=== PATIENT | female | born 1990 | race Caucasian/White ===

== ENCOUNTER 2025-02-16 11:43 | Outpatient (AMB) | payer OTHER, SELFPAY ==
--- NOTE | 2025-02-16 11:51 | MHC.PC.OV ---
Vital Signs 02/16/25 12:02 Height 6 ft Weight 245 lb 6 oz BMI 33.3 BP 128/82 Blood Pressure Location Lt brachial Position Sitting Respiration 13 Pulse 76 Pulse Source Pulse Oximeter Temp 98.4 F Temp Source Temporal Artery Scan Pulse Oximetry (%) 95 Oxygen Delivery Method Room Air Intake Visit Reasons: [facility] Intake Note: Edyta presents in the office today to establish care. Allergies No Known Allergies Allergy (Verified 02/16/25 11:55) Tobacco use date assessed: 02/16/25 Dental Screening Dental Screen Date: 02/16/25 Did you have a dental visit in the last 12 months?: Yes Did you have a dental problem in the last 6 months where you did not have access to dental care?: No Was dental information given to patient?: Patient has dentist HPI HPI Comments History of Present Illness Details 34-year-old female with a past medical history of anxiety with depression, BRCA1 mutation, skin cancer and asthma presents to establish care. She transferred from [facility]. Due for a physical exam. Endorses itching and dry skin and ears for 2 months. Went to the walk-in and they said she had no infection. She has seasonal allergies. Gets dry skin but no eczema or rashes elsewhere. Tried changing shampoos without success. Takes albuterol as needed before exercise and seasonally. No hospitalizations or ER visits for asthma. Patient sees telehealth psychiatrist from [place]. They thought about starting Prozac, but she deferred. She is trying vitamins and working on wellness. She is sleeping better. She is thinking about seeing a therapist. BRCA1 mutation-previously followed by [facility], but the specialist told her she had to decide within a year if she wanted to have mastectomy and hysterectomy, and they said she would be dropped from the practice if she did not make the decision so she did not want to go back. Patient says her sister had prophylactic mastectomy and hysterectomy and has had a lot of issues since then. She was previously seen at [facility] [place] and requests referral there. She also needs a referral to Gynecology locally. Denies breast pain, lumps, rashes or nipple discharge. Patient seen at [facility] and had skin cancer removed from her back. She does not remember what kind, but she goes regularly for skin exams at least once per year. Patient has been working on weight loss, but it is difficult to lose weight. No recent TSH level. No history of thyroid disease. She is not interested in weight loss medications. Declines flu shot. Tdap administered. ROS: Constitutional: No unexplained weight loss, fever, chills, fatigue or night sweats. Eyes: No vision changes, blurry vision, double vision, eye pain, eye redness, eye discharge. ENT: No hearing loss, sneezing, congestion, runny nose or sore throat. Respiratory: No shortness of breath, cough or sputum production. Cardiovascular: No chest pain, chest pressure or chest discomfort. No palpitations or pedal edema. Gastrointestinal: No anorexia, nausea, vomiting or diarrhea. No abdominal pain or blood in stool. Genitourinary: No dysuria, hematuria, urinary frequency. Neurologic: No headache, dizziness, syncope, unilateral weakness, ataxia, numbness or tingling in the extremities. Musculoskeletal: No muscle pain, back pain, joint pain or swelling. Hematologic/Lymphatics: No bleeding or bruising. No painful lymph nodes. Skin: See HPI Endocrine: No cold or heat intolerance. No polyuria or polydipsia. Psychiatric: See HPI. No SI or HI. Physical exam: Constitutional: Alert, in no distress. Head: Normocephalic. Eyes: Pupils are equal, round and reactive to light. Extraocular muscles intact. Ear, Nose and Throat: Canals without erythema, discharge or swelling. There is dryness and some flaky skin in the ear canals.. TMs normal. Normal nasal mucosa. No nasal discharge. No oral lesions. Neck: Supple, Full range of motion. No lymphadenopathy. No palpable thyroid masses. Respiratory: Clear to auscultation. Cardiovascular: S1 S2 regular. No murmur Gastrointestinal: Abdomen soft, non-tender, non-distended. Normal bowel sounds. No palpable masses. Genitourinary: No costovertebral angle tenderness. Neurologic: No focal neurological deficits. Symmetric patellar reflexes. Moves all extremities spontaneously. Sensation intact bilaterally. Skin: No rashes Musculoskeletal: No gross deformities. Normal range of motion. Extremities: Warm and well perfused. No clubbing, cyanosis or edema. Intact peripheral pulses bilaterally Psychiatric: Normal mood and affect [facility] Medical History (Updated 02/17/25 @ 09:08 by CHAUNCEY Huerta) Dermatitis of both ear canals Routine physical examination Screening for cardiovascular condition Skin cancer Breast cancer, BRCA1 positive Anxiety and depression Seasonal allergies Family History (Updated 02/16/25 @ 12:01 by Liudmila Phillips CMA) Father Hypertension Cardiovascular disease Mother Tumor Anxiety and depression Panic disorder FH: mental illness Maternal Grandmother Breast cancer Ovarian cancer Thyroid cancer Social History (Updated 02/16/25 @ 12:02 by Liudmila Phillips CMA) Housing: Apartment Alcohol intake: current Patient Tobacco Use Status: Former Tobacco user Cigarette Packs Per Day: 1 Cigarettes Per Day: 10 Years Smoked: 10 e-Cigarette/Vaping Use: Former Use Second Hand Smoke Exposure: Yes Substance Use Type: Marijuana service: No Current occupational status: employed 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 1. Little interest or pleasure in doing things: several days 2. Feeling down, depressed, or hopeless: several days 3. Trouble falling or staying asleep, or sleeping too much: several days 4. Feeling tired or having little energy: several days 5. Poor appetite or overeating: several days 6. Feeling bad about yourself - or that you are a failure or have let yourself or your family down: several days 7. Trouble concentrating on things, such as reading the newspaper or watching television: more than half the days 8. Moving or speaking so slowly that other people could have noticed. Or the opposite - being so fidgety or restless that you have been moving around a lot more than usual: several days 9. Thoughts that you would be better off or of hurting yourself in some way: not at all Total score: 9 Depression Screening Interpretation: Positive Depression Screening Follow-up: Existing condition and In treatment Depression Screening Done: Yes 25172 - PHQ-9 Billing: Yes Source: Developed by Drs. Justice Waller, Elisa Mcfadden, Ian Hummel and colleagues, with an educational juma from [employer]. Thrive Questionnaire Date Thrive assessed: 02/16/25 I am a: Patient What is your living situation today?: I have a steady place to live Within the past 12 months, did the food you bought not last and you didn't have the money to get more?: Never true Within the past 12 months, did you worry whether your food would run out before you got money to buy more?: Sometimes True Do you have trouble paying for medicines?: Yes Do you have trouble getting transportation to medical appointments?: No Do you have trouble paying your heating and electricity bill?: Yes Do you have trouble taking care of your child, family member or friend?: No Do you have trouble with day-to-day activities such as bathing, preparing meals, shopping, managing finances, etc.?: No Are you currently unemployed and looking for a job?: No Are you interested in more education?: Yes Please select the resources that you would like help with: None Currently or been in a relationship where the following occur: No concerns reported THRIVE Score: 2 AUDIT C Alcohol Use Questionnaire (AUDIT-C) 1. How often do you have a drink containing alcohol?: Monthly or less 2. How many drinks containing alcohol do you have on a typical day when you are drinking?: 1 or 2 3. How often do you have six or more drinks on one occasion?: Never Total Score: 1 MARYURI-7 AMB Questionnaire MARYURI-7 Date MARYURI - 7 assessed: 02/16/25 Feeling nervous, anxious, or on edge: 1 = Several days Not being able to stop or control worryin = Several days Worrying too much about different things: 1 = Several days Trouble relaxin = More than half the days Being so restless that it is hard to sit still: 3 = Nearly every day Becoming easily annoyed or irritable: 2 = More than half the days Feeling afraid as if something awful might happen: 1 = Several days Total MARYURI-7 score (0-4 normal; 5-9 mild; 10-14 moderate; 15-21 severe): 11 Source: Developed by Drs. Justice Waller, Elisa Mcfadden, Ian Hummel and colleagues, with an educational juma from [employer]. MARYURI-7 Assessment Billing MARYURI-7 Assessment Tool: MARYURI-7 Assessment 51113 Physical exam (Primary Care) Vital Signs: Last Vital Signs Temp 98.4 F 02/16/25 12:02 Pulse 76 02/16/25 12:02 Resp 13 02/16/25 12:02 BP 128/82 02/16/25 12:02 Pulse Ox 95 02/16/25 12:02 Oxygen Delivery Method Room Air 02/16/25 12:02 BMI result Body Mass Index 33.3 Tobacco/Smoking Status: Tobacco use Status Tobacco use date assessed 02/16/25 02/16/25 12:06 Patient Tobacco Use Status Former Tobacco user 02/16/25 12:06 e-Cigarette/Vaping Use Former Use 02/16/25 12:06 PHQ-9: PHQ-9 Score PHQ-9: Total score 9 02/16/25 13:59 Depression Screening Interpretation: Positive Depression Screening Follow-up: Existing condition and In treatment Thrive Assessment: Date of Thrive Assessment Date Thrive assessed 02/16/25 02/16/25 11:55 Currently or been in a relationship where the following occur: No concerns reported Immunizations Boostrix Tdap 2.5 Lf unit-8 mcg-5 Lf/0.5 mL intramuscular syringe Performing Provider: CHAUNCEY Huerta Performing Location: [facility] [place] [facility] Administered by: Liudmila Phillips CMA on 02/16/25 13:04 Dose Route Admin Location Dispensed Lot Number Expiration Date ND [employer] 0.5 mL IM Left Deltoid 0.5 mL [id number] 03/31/27 49780-012-25 Hammerless Total Dispensed Waste 0.5 mL 0 % VIS Given Date VIS Provided VIS Publication Date 02/16/25 Single Vaccine 20 Eligibility Eligibility Date Funding Source Not [facility] Eligible 02/16/25 Private Coding Level of Care Code New Pt Level 2 (59506) New Pt Prev Care 18-39yr(98581 Diagnoses Routine physical examination Z00.00 Anxiety and depression F41.9; F32.A Breast cancer, BRCA1 positive C50.919; Z15.01; Z15.02; Z15.05; Z15.060 Screening for cardiovascular condition Z13.6 Dermatitis of both ear canals H60.543 Additional Codes MARYURI-7 Assessment Billing - MARYURI-7 Assessment Tool: MARYURI-7 Assessment 88351 ([id number]) PHQ-9 - 46763 - PHQ-9 Billing: Yes ([id number]) Assessment & Plan Assessment & Plan (1) Routine physical examination: Code(s): Z00.00 - Encounter for general adult medical examination without abnormal findings Category: Medical Plan: Patient is seen today for a routine physical. As part of this visit we reviewed the following issues, which are considered and essential part of preventative health in this age group: - Breast Cancer screening - Annual Chief Commercial Officer exam - Screening for colon cancer - Blood pressure screening annually - Cholesterol screening - Osteoporosis prevention including calcium/vitamin D intake, weight bearing exercise & smoking cessation - Nutritional and exercise counseling - Counseling of injury prevention including fire prevention, smoke alarms and seat belt usage - Screening for depression - Education about skin cancer - Recommendations about immunizations - Recommendation of an eye exam - Screening for substance abuse (2) Anxiety and depression: Code(s): F41.9 - Anxiety disorder, unspecified; F32.A - Depression, unspecified Category: Medical Plan: She is followed by a psychiatrist, and she is thinking about starting therapy. She is deferring medications for this currently. (3) Breast cancer, BRCA1 positive: Code(s): C50.919 - Malignant neoplasm of unspecified site of unspecified female breast; Z15.01 - Genetic susceptibility to malignant neoplasm of breast; Z15.02 - Genetic susceptibility to malignant neoplasm of ovary; Z15.05 - Genetic susceptibility to malignant neoplasm of fallopian tube(s); Z15.060 - Genetic susceptibility to colorectal cancer Category: Medical Plan: She is referred to [facility] [place] breast specialty. Recommended breast MRI and mammogram, but she wants to check cost with insurance 1st. She is referred to Gynecology for her annual exam. Instructed to call the gynecology office to schedule her appointment. No family history of CRC. Colonoscopy recommended age [age] years old. Recommended annual dermatology exam to screen for skin cancers. She is followed by [facility]. (4) Screening for cardiovascular condition: Code(s): Z13.6 - Encounter for screening for cardiovascular disorders Category: Medical (5) Dermatitis of both ear canals: Code(s): H60.543 - Acute eczematoid otitis externa, bilateral Category: Medical Plan: She gets seasonal allergies in the fall. We discussed other etiologies for this. She will try a daily antihistamine, Sherri until the 1st hard [place] and apply hydrocortisone twice daily for 10 days in the canals. She will call if symptoms worsen or do not resolve with this regimen. We will consider referral to Allergy and immunology at that time. Plan Schedule physical exam in 1 year. Orders: Orders Lipid Panel 02/16/25 C50.919 - Malignant neoplasm of unspecified site of unspecified female breast, E78.5 - Hyperlipidemia, unspecified, F32.A - Depression, unspecified, F41.9 - Anxiety disorder, unspecified, Z00.00 - Encounter for general adult medical examination without abnormal findings, Z13.6 - Encounter for screening for cardiovascular disorders, Z15.01 - Genetic susceptibility to malignant neoplasm of breast, Z15.02 - Genetic susceptibility to malignant neoplasm of ovary, Z15.05 - Genetic susceptibility to malignant neoplasm of fallopian tube(s), Z15.060 - Genetic susceptibility to colorectal cancer Complete Blood Count no Diff 02/16/25 C50.919 - Malignant neoplasm of unspecified site of unspecified female breast, F32.A - Depression, unspecified, F41.9 - Anxiety disorder, unspecified, Z00.00 - Encounter for general adult medical examination without abnormal findings, Z13.6 - Encounter for screening for cardiovascular disorders, Z15.01 - Genetic susceptibility to malignant neoplasm of breast, Z15.02 - Genetic susceptibility to malignant neoplasm of ovary, Z15.05 - Genetic susceptibility to malignant neoplasm of fallopian tube(s), Z15.060 - Genetic susceptibility to colorectal cancer Vitamin D 25-OH (D2 and D3) 02/16/25 C50.919 - Malignant neoplasm of unspecified site of unspecified female breast, F32.A - Depression, unspecified, F41.9 - Anxiety disorder, unspecified, M85.80 - Other specified disorders of bone density and structure, unspecified site, Z00.00 - Encounter for general adult medical examination without abnormal findings, Z13.6 - Encounter for screening for cardiovascular disorders, Z15.01 - Genetic susceptibility to malignant neoplasm of breast, Z15.02 - Genetic susceptibility to malignant neoplasm of ovary, Z15.05 - Genetic susceptibility to malignant neoplasm of fallopian tube(s), Z15.060 - Genetic susceptibility to colorectal cancer TSH reflex Free T4 02/16/25 C50.919 - Malignant neoplasm of unspecified site of unspecified female breast, F32.A - Depression, unspecified, F41.9 - Anxiety disorder, unspecified, Z00.00 - Encounter for general adult medical examination without abnormal findings, Z13.6 - Encounter for screening for cardiovascular disorders, Z15.01 - Genetic susceptibility to malignant neoplasm of breast, Z15.02 - Genetic susceptibility to malignant neoplasm of ovary, Z15.05 - Genetic susceptibility to malignant neoplasm of fallopian tube(s), Z15.060 - Genetic susceptibility to colorectal cancer Comprehensive Met. Panel 02/16/25 C50.919 - Malignant neoplasm of unspecified site of unspecified female breast, F32.A - Depression, unspecified, F41.9 - Anxiety disorder, unspecified, Z00.00 - Encounter for general adult medical examination without abnormal findings, Z13.6 - Encounter for screening for cardiovascular disorders, Z15.01 - Genetic susceptibility to malignant neoplasm of breast, Z15.02 - Genetic susceptibility to malignant neoplasm of ovary, Z15.05 - Genetic susceptibility to malignant neoplasm of fallopian tube(s), Z15.060 - Genetic susceptibility to colorectal cancer Vitamin B12 02/16/25 C50.919 - Malignant neoplasm of unspecified site of unspecified female breast, F32.A - Depression, unspecified, F41.9 - Anxiety disorder, unspecified, Z00.00 - Encounter for general adult medical examination without abnormal findings, Z13.6 - Encounter for screening for cardiovascular disorders, Z15.01 - Genetic susceptibility to malignant neoplasm of breast, Z15.02 - Genetic susceptibility to malignant neoplasm of ovary, Z15.05 - Genetic susceptibility to malignant neoplasm of fallopian tube(s), Z15.060 - Genetic susceptibility to colorectal cancer, Z91.89 - Other specified personal risk factors, not elsewhere classified TDaP Immunization 02/16/25 Z23 - Encounter for immunization Referrals MANAGER FEDERAL Referral C50.919 - Malignant neoplasm of unspecified site of unspecified female breast, Z00.00 - Encounter for general adult medical examination without abnormal findings, Z15.01 - Genetic susceptibility to malignant neoplasm of breast, Z15.02 - Genetic susceptibility to malignant neoplasm of ovary, Z15.05 - Genetic susceptibility to malignant neoplasm of fallopian tube(s), Z15.060 - Genetic susceptibility to colorectal cancer Breast Surgery Referral C50.919 - Malignant neoplasm of unspecified site of unspecified female breast, Z15.01 - Genetic susceptibility to malignant neoplasm of breast, Z15.02 - Genetic susceptibility to malignant neoplasm of ovary, Z15.05 - Genetic susceptibility to malignant neoplasm of fallopian tube(s), Z15.060 - Genetic susceptibility to colorectal cancer Medications: New fexofenadine (Sherri Allergy) 180 mg PO Q24H 30 tabs 0RF hydrocortisone 1% (Cortizone-10) 1 appl topical BID PRN 28.35 grams 0RF skin irritation 10 days albuterol sulfate 90 mcg/actuation 2 inhalations inhalation .every 4 hours PRN 8.5 grams 0RF shortness of breath or wheezing 30 days
[2025-02-16 12:02] VITALS: BP 128/82; PULSE 76; RESP 13; TEMP 36.9; O2SAT 95; BMI 33.3
== END 2025-02-16 13:03 | disposition home or self-care (01) ==
LOC: HO.HMCFM 11:44
PROVIDERS: PCP Physician Assistant Medical; Visit Provider Physician Assistant Medical
DX: Z23 Encounter for immunization (principal)

== ENCOUNTER → 2025-02-16 11:43 | Outpatient (BNVA) | payer OTHER, SELFPAY | PROVIDERS: PCP Physician Assistant Medical; Visit Provider Physician Assistant Medical | DX: Z00.00 Encounter for general adult medical examination without abnormal findings (principal); Z23 Encounter for immunization; F41.9 Anxiety disorder, unspecified; F32.A Depression, unspecified; H60.543 Acute eczematoid otitis externa, bilateral; Z85.3 Personal history of malignant neoplasm of breast; Z15.01 Genetic susceptibility to malignant neoplasm of breast; Z15.02 Genetic susceptibility to malignant neoplasm of ovary; Z15.060 Genetic susceptibility to colorectal cancer; Z15.05 Genetic susceptibility to malignant neoplasm of fallopian tube(s); Z28.21 Immunization not carried out because of patient refusal; Z13.31 Encounter for screening for depression; Z13.39 Encounter for screening examination for other mental health and behavioral disorders | CPT/HCPCS: 90471; 90715; 96127 ==

== ENCOUNTER 2025-03-16 14:20 | Outpatient (AMB) | payer OTHER, SELFPAY ==
--- NOTE | 2025-03-16 14:27 | A.OFFPC_ITS ---
Vital Signs 03/16/25 14:33 Height 6 ft Weight 249 lb 2 oz BMI 33.8 BP 112/72 Blood Pressure Location Rt brachial Position Sitting Respiration 14 Pulse 84 Pulse Source Pulse Oximeter Temp 97.8 F Temp Source Temporal Artery Scan Pulse Oximetry (%) 97 Oxygen Delivery Method Room Air Intake Visit Reasons: Respiratory complaints Intake Note: Edyta presents in the office today for respiratory issues. Patient went to [facility] and was tested for COVID, FLU and Strep A and were all negative. Cough, may have had a fever, but unsure. Hot and Cold flashes. Having SOB. Inhaler did help. Culture was taken for further testing and she is awating results. Allergies No Known Allergies Allergy (Verified 03/16/25 14:32) Medication List - Last Reconciled 03/16/25 by CHAUNCEY Huerta albuterol sulfate 90 mcg/actuation 2 inhalations inhalation .every 4 hours PRN 30 days amoxicillin-pot clavulanate 875-125 mg 1 tab PO BID cholecalciferol (vitamin D3) 25 mcg PO DAILY fexofenadine 180 mg PO DAILY hydrocortisone 1% (Cortizone-10) 1 appl topical BID PRN 10 days magnesium 250 mg PO DAILY mecobalamin (vitamin B12) mcg PO omega-3 fatty acids 500 mg PO DAILY Tobacco use date assessed: 03/16/25 Dental Screening Dental Screen Date: 03/16/25 Did you have a dental visit in the last 12 months?: Yes Did you have a dental problem in the last 6 months where you did not have access to dental care?: No Was dental information given to patient?: Patient has dentist HPI HPI Comments History of Present Illness Details This is a 34-year-old female with a past medical history of BRCA1 mutation presenting for a sick visit. She had an appointment to establish care on 02/16/2025. She reported taking albuterol as needed before exercise and seasonally but no hospitalizations or ER visits for asthma. Patient started to get sick on 03/14/2025. She had a sore throat that morning. She went to urgent care in [place]. Rapid strep reportedly negative as well as COVID and flu testing. Throat culture is pending. That evening she started coughing and having chest congestion. She felt like she had difficulty breathing when she was lying down flat so she did not sleep. She also had wheezing. Symptoms continued so yesterday around 5 pm she took her albuterol inhaler, and she almost instantly felt better. Shortness of breath and wheezing resolved. She slept well last night. She has not used it again today because she had this appointment so she is starting to have recurrence of symptoms. Her cough is sometimes nonproductive, and sometimes she brings up yellow mucus. There is no hemoptysis. She has chest tightness associated with wheezing and coughing. Denies chest pain. No dizziness or syncope. Her ears are starting to ache. No hearing loss. Endorses chills but no fevers. She has not taken any medications for her symptoms today. No sick contacts. ROS: Constitutional: Endorses fatigue, chills. No fevers or night sweats. Eyes: No vision changes, blurry vision, double vision, eye pain, eye redness, eye discharge. ENT: No hearing loss. See HPI Respiratory: See HPI Cardiovascular: No palpitations or pedal edema. Endorses chest tightness with respiratory symptoms per HPI Gastrointestinal: Nausea, vomiting or diarrhea Neurologic: No dizziness, syncope Skin: No rash Physical exam: Constitutional: Alert, in no distress. Ear, Nose and Throat: Canals clear. Left TM peraza and pearly. Right tympanic membrane mildly bulging and erythematous. Normal nasal mucosa. Sinuses nontender. No nasal discharge. No oral lesions. Tonsils 2+ without erythema or exudates Neck: Supple, Full range of motion. No lymphadenopathy. Respiratory: Clear to auscultation. No crackles, rhonchi or rales. Cardiovascular: S1 S2 regular. No murmurs. Gastrointestinal: Abdomen soft, non-tender, non-distended. Normal bowel sounds. No palpable masses. Neurologic: No focal neurological deficits Extremities: Warm and well perfused. No clubbing, cyanosis or edema. Psychiatric: Normal mood and affect [facility] Medical History (Updated 03/16/25 @ 15:12 by CHAUNCYE Huerta) Upper respiratory infection Asthma exacerbation, mild Asthma Dermatitis of both ear canals Routine physical examination Screening for cardiovascular condition Skin cancer Breast cancer, BRCA1 positive Anxiety and depression Seasonal allergies Family History Father Hypertension Cardiovascular disease Mother Tumor Anxiety and depression Panic disorder FH: mental illness Maternal Grandmother Breast cancer Ovarian cancer Thyroid cancer Social History (Updated 03/16/25 @ 14:33 by Liudmila Phillips CMA) Housing: Apartment Alcohol intake: current Patient Tobacco Use Status: Former Tobacco user Cigarette Packs Per Day: 1 Cigarettes Per Day: 10 Years Smoked: 10 Packs Per Year: 10 Packs per year/per ci.00 e-Cigarette/Vaping Use: Former Use Second Hand Smoke Exposure: Yes Use of substances other than those prescribed or required for medical reasons: Yes Substance Use Type: Marijuana service: No Current occupational status: employed Current occupation: [employer] for [employer] Current occupational exposures/hazards: No Cognitive needs: No Hearing needs: No Vision needs: Yes Questionnaire Thrive Questionnaire Date Thrive assessed: 02/16/25 I am a: Patient What is your living situation today?: I have a steady place to live Within the past 12 months, did the food you bought not last and you didn't have the money to get more?: Never true Within the past 12 months, did you worry whether your food would run out before you got money to buy more?: Sometimes True Do you have trouble paying for medicines?: Yes Do you have trouble getting transportation to medical appointments?: No Do you have trouble paying your heating and electricity bill?: Yes Do you have trouble taking care of your child, family member or friend?: No Do you have trouble with day-to-day activities such as bathing, preparing meals, shopping, managing finances, etc.?: No Are you currently unemployed and looking for a job?: No Are you interested in more education?: Yes Please select the resources that you would like help with: None Currently or been in a relationship where the following occur: No concerns reported THRIVE Score: 2 MARYURI-7 AMB Questionnaire MARYURI-7 Date MARYRUI - 7 assessed: 02/16/25 Source: Developed by Drs. Justice Waller, Elisa Mcfadden, Ian Hummel and colleagues, with an educational juma from [employer]. Physical exam (Primary Care) Vital Signs: Last Vital Signs Temp 97.8 F 03/16/25 14:33 Pulse 84 03/16/25 14:33 Resp 14 03/16/25 14:33 BP 112/72 03/16/25 14:33 Pulse Ox 97 03/16/25 14:33 Oxygen Delivery Method Room Air 03/16/25 14:33 BMI result Body Mass Index 33.8 Tobacco/Smoking Status: Tobacco use Status Tobacco use date assessed 03/16/25 03/16/25 14:37 Patient Tobacco Use Status Former Tobacco user 03/16/25 14:33 e-Cigarette/Vaping Use Former Use 03/16/25 14:33 Thrive Assessment: Date of Thrive Assessment Date Thrive assessed 02/16/25 03/16/25 14:29 Currently or been in a relationship where the following occur: No concerns reported Coding Level of Care Code Est Pt Level 4 (08612) Complex EM visit Add On G2211 Diagnoses Asthma exacerbation, mild J45.901 Viral upper respiratory tract infection J06.9 URI type: unspecified viral URI Right otitis media H66.91 Assessment & Plan Assessment & Plan (1) Asthma exacerbation, mild: Code(s): J45.901 - Unspecified asthma with (acute) exacerbation Category: Medical (2) Upper respiratory infection: Code(s): J06.9 - Acute upper respiratory infection, unspecified Category: Medical Qualifiers: URI type: unspecified viral URI Qualified Code(s): J06.9 - Acute upper respiratory infection, unspecified (3) Right otitis media: Code(s): H66.91 - Otitis media, unspecified, right ear Plan Take Augmentin 1 pill twice daily with food. Recommended yogurt and probiotics. Use albuterol inhaler 2 puffs every 4 hours as needed for cough, wheezing and shortness of breath. Lungs are clear today. She responded well to the inhaler and does not require prednisone at this time. If she is not responding to the albuterol inhaler for at least 4-6 hours she was instructed to contact the office for prednisone. Recommended supportive care with Tylenol as needed for pain or fever, cool mist humidifier, increasing fluids, rest. I provided a letter for work. She will have a PFT scheduled non urgently. Orders: Orders PFT pulmonary function test Today J45.909 - Unspecified asthma, uncomplicated Medications: New amoxicillin-pot clavulanate 875-125 mg 1 tab PO BID 20 tabs 0RF
[2025-03-16 14:33] VITALS: BP 112/72; PULSE 84; RESP 14; TEMP 36.6; O2SAT 97; BMI 33.8
== END 2025-03-16 15:03 | disposition home or self-care (01) ==
LOC: HO.HMCFM 14:21
PROVIDERS: PCP Physician Assistant Medical; Visit Provider Physician Assistant Medical
DX: J45.901 Unspecified asthma with (acute) exacerbation (principal); J06.9 Acute upper respiratory infection, unspecified; H66.91 Otitis media, unspecified, right ear